=== PATIENT | male | born 1975 | race Caucasian/White ===

== ENCOUNTER 2019-02-27 16:29 | Emergency (ER) | payer OTHER ==
[2019-02-27 17:27] VITALS: BP 136/90
--- NOTE | 2019-02-27 18:42 | ED ---
Asthma - HPI Summary HPI Summary: 43 yr old with URI symptoms for a couple of days, and now coughing and SOB. He has a history of asthma. He is out of his nebs. He states he needs steroids and refills on his asthma meds. He denies chest pain, fever, chills. He denies sinus pain, sore throat, post nasal drip. - History of Current Complaint Chief Complaint: UCRespiratory Stated Complaint: SOB Time Seen by Provider: 02/27/19 18:16 Pain Intensity: 0 - Allergy/Home Medications Allergies/Adverse Reactions: Allergies Allergy/AdvReac Type Severity Reaction Status Date / Time bupropion [From Zyban] Allergy Severe Airway Verified 02/27/19 17:13 Obstruction Home Medications: Home Medications Albuterol 2.5MG/3ML (0.083%)* [Ventolin 2.5 MG/3 ML NEB.DARLIN*] 2.5 mg INH Q4H PRN 02/27/19 [History Confirmed 02/27/19] Albuterol HFA INHALER* [Ventolin HFA Inhaler*] 2 puff INH Q4H PRN 02/27/19 [ History Confirmed 02/27/19] PMH/Surg Hx/FS Hx/Imm Hx Cardiovascular History: Denies: Hx Pacemaker/ICD Respiratory History: Reports: Hx Asthma Sensory History: Denies: Hx Hearing Aid Psychiatric History: Denies: Hx Panic Disorder - Surgical History Surgery Procedure, Year, and Place: RIGHT EYE LENS REPLACED 1994. LEFT KNEE SURGERY Infectious Disease History: No Infectious Disease History: Denies: Traveled Outside the [place] in Last 30 Days - Family History Known Family History: Positive: None - Social History Occupation: Employed Full-time Alcohol Use: Rare Substance Use Type: Reports: None Smoking Status (MU): Light Every Day Tobacco Smoker Type: Cigarettes Amount Used/How Often: 7 CIGS A DAY Review of Systems Constitutional: Negative Positive: Nasal Discharge Positive: Shortness Of Breath, Cough All Other Systems Reviewed And Are Negative: Yes Physical Exam Triage Information Reviewed: Yes Vital Signs On Initial Exam: Initial Vitals Temp Pulse Resp BP Pulse Ox 98.9 F 92 20 136/90 96 02/27/19 17:13 02/27/19 17:13 02/27/19 17:13 02/27/19 17:13 10/28/19 17:13 Vital Signs Reviewed: Yes Appearance: Positive: Well-Appearing, No Pain Distress Skin: Positive: Warm, Skin Color Reflects Adequate Perfusion Head/Face: Positive: Normal Head/Face Inspection Eyes: Positive: EOMI, CONCHITA, Conjunctiva Inflammed - left with upper lid edema, redness and formation of a stye medially ENT: Positive: Normal ENT inspection, Pharynx normal, Nasal congestion Neck: Positive: Nontender Respiratory/Lung Sounds: Positive: Breath Sounds Present, Wheezes - scant wheezes. He speaks in full clear sentences. Cardiovascular: Positive: RRR. Negative: Murmur Abdomen Description: Negative: Distended Musculoskeletal: Positive: Strength/ROM Intact Neurological: Positive: Sensory/Motor Intact, Alert, Oriented to Person Place, Time, CN Intact II-III, Normal Gait, Speech Normal Psychiatric: Positive: Normal Diagnostics - Vital Signs Vital Signs Temp Pulse Resp BP Pulse Ox 02/27/19 17:13 98.9 F 92 20 136/90 96 - Laboratory Lab Statement: Any lab studies that have been ordered have been reviewed, and results considered in the medical decision making process. Asthma Course/Dx - Course Course Of Treatment: 43 yr old with hordeolum and URI with asthma exacerbation. Scripts for his nebs, his MDI, steroids, drops and antibiotics for his eyelid. FU with PMD. - Diagnoses Provider Diagnoses: Hordeolum internum left upper eyelid, Upper respiratory infection, Asthma Discharge ED - Sign-Out/Discharge Documenting (check all that apply): Patient Departure All imaging exams completed and their final reports reviewed: No Studies - Discharge Plan Condition: Good Disposition: HOME Prescriptions: Albuterol 2.5MG/3ML (0.083%)* [Ventolin 2.5 MG/3 ML NEB.DARLIN*] 2.5 mg INH Q4H # 25 neb.darlin Albuterol HFA INHALER* [Ventolin HFA Inhaler*] 2 puff INH Q4H PRN #1 mdi PRN Reason: Cough Cephalexin CAP* [Keflex CAP*] 500 mg PO QID #40 cap predniSONE TAB* [Deltasone 20 MG TAB*] 40 mg PO DAILY #10 tab Sulfacetamide 10 % OPTH.DARLIN* [Sulamyd 10% Opth*] 1 drop LEFT EYE Q4H #1 btl Patient Education Materials: Asthma (ED), Stye (ED), Hypertension (ED) Referrals: Maik Flores [Primary Care Provider] - 2 Days - Billing Disposition and Condition Condition: GOOD Disposition: Home
== END 2019-02-27 18:40 | disposition home or self-care (01) ==
LOC: UCCORT 16:29
DX: J45.909 Unspecified asthma, uncomplicated (principal); J06.9 Acute upper respiratory infection, unspecified; H00.024 Hordeolum internum left upper eyelid; F17.210 Nicotine dependence, cigarettes, uncomplicated; Z88.8 Allergy status to other drugs, medicaments and biological substances
CPT/HCPCS: 99202; G0463